=== PATIENT | male | born 1955 | race Caucasian/White ===

== ENCOUNTER → 2018-10-27 11:55 | Outpatient (CLI) | payer BC, SELFPAY ==
[2018-10-27 14:51] LABS: Blood Urea Nitrogen 21 mg/dL (7-18); Calcium 8.9 mg/dL (8.5-10.1); Carbon Dioxide 30 mmol/L (21.0-32.0); Chloride 100 mmol/L (98-107); Creatinine,Serum 1.05 mg/dL (0.70-1.30); Estimated Glomerular Filt Rate 72 ml/min (>60); GFR (African American) 87 ML/MIN (>60); Glucose 94 mg/dL (74-106); Sodium 139 mmol/L (136-145)
== END ==
PROVIDERS: Visit Provider Internal Medicine
DX: M19.90 Unspecified osteoarthritis, unspecified site (principal)
CPT/HCPCS: 80048

== ENCOUNTER → 2020-12-09 11:15 | Outpatient (CLI) | payer BC, SELFPAY | PROVIDERS: Visit Provider Urology | DX: Z01.812 Encounter for preprocedural laboratory examination (principal); Z11.52 Encounter for screening for COVID-19; N40.1 Benign prostatic hyperplasia with lower urinary tract symptoms | CPT/HCPCS: C9803; U0003; U0005 ==

== ENCOUNTER 2020-12-12 07:22 | Day surgery (SDC) | payer BC, SELFPAY ==
[2020-12-09 10:52] VITALS: BMI 30.3
[2020-12-12 07:38] VITALS: BP 122/77; PULSE 62; RESP 18; TEMP 36.2; O2SAT 97
--- NOTE | 2020-12-12 08:01 | HMH.ANESCL ---
[facility] Anesthesia Checklist - Patient Identification Patient Identification: Arm Band - Structural Data Admitted From: Home Planned Operative Procedure/s: Cystoscopy Consent for Planned Operative Procedure(s) Verified: Yes Verified Documents: Surgical Consent, History and Physical - NPO Status Verified Time NPO: 00:00 - Additional verifications Anesthesia Reactions: No Hx Blood Transfusions: No Blood Transfusion Reaction: No - Airway Assessment C-Spine Mobility Assessed: Yes (mp2) TMJ Mobility Assessed: Yes Dentition: Good Dentition - Neurological Assessment Level of Consciousness: Awake, Alert - Anesthesia Plan Anesthesia Risk discussed: Yes Anesthesia Plan: Verified ASA Class: II Anesthesia Type: MAC [facility] History I have reviewed the patient's past medical history: Yes Medical History: Reports:: Hyperlipidemia, Hypertension Denies:: Cancer, Diabetes Mellitus Type 1, Diabetes Mellitus Type 2, Internal Pacemaker, MRSA, Seizures *Have you ever received a pneumonia vaccine?: No *Have you received a flu vaccine this season?: Yes Other Medical History: Reports: Arthritis, Thyroid Disease. Denies: Blood Transfusion Reaction Anesthesia experience/problems:: nac Laterality Cases: Bilateral: Total Hip Replacement Other Surgeries: Yes: Colonoscopy. No: Pacemaker Amputation: No Fractures: No - *Social History Last grade of school completed: High school graduate Smoking Status: Never smoker Alcohol Intake: current Alcohol Intake Frequency:: a few times a month Substance Use Type: denies use *Occupational Status:: retired Housing: house Household Members: none *Travel in the last 8 weeks: None Family Hx:: Hyperlipidemia, Hypertension, Thyroid Disorder
[2020-12-12 09:47] VITALS: BP 107/64; PULSE 80; RESP 18; TEMP 35.8; O2SAT 93
[2020-12-12 09:55] VITALS: BP 110/61; PULSE 65; RESP 18; O2SAT 95
[2020-12-12 10:05] VITALS: BP 97/59; PULSE 65; RESP 18; O2SAT 95
[2020-12-12 10:15] VITALS: BP 107/69; PULSE 62; RESP 16; O2SAT 96
[2020-12-12 10:25] VITALS: BP 112/85; PULSE 62; RESP 18; O2SAT 98
--- NOTE | 2020-12-12 11:04 | HMH.OPNOTE ---
Date of procedure: 12/12/20 Pre-op Diagnosis:: Lower urinary tract symptoms Post-op Diagnosis:: BPH with lower urinary tract symptoms Procedure performed:: Cystoscopy Surgeon:: Randy Fournier MD [facility]BD SPECIAL EDUCATION TEACHER:: Maximiliano Elizondo Anesthesia: MAC, LMA Estimated blood loss (mL): 0 Clinical Note:: 65-year-old white male with lower urinary tract symptoms presents for urologic evaluation. Operative findings:: Patient with by lobar hyperplasia small median lobe. Prostate is not elongated. No evidence of chronic bladder outlet obstructive changes in the bladder Operative note:: Patient taken to the operating room after informed consent was obtained. Placed on the operating table in the supine position and general anesthesia administered. After adequate analgesia patient was placed into the dorsal lithotomy position and prepped and draped in the standard surgical fashion. The 22 Mo passed into the urethral meatus and to the prostatic urethra which showed evidence of trilobar hyperplasia. The bladder was entered and examined in a systematic fashion. There was no evidence of trabeculation, stones, diverticula or cellules. The ureteral orifices were in their normal anatomic position with clear efflux of urine. Small median lobe was present. Scope was retracted back to the prostatic urethra and there was evidence of by lobar hyperplasia. The prostatic urethra was about 2-1/2 cm in length. Bladder then emptied and the scope removed. Patient tolerated procedure well. Urojet placed into the urethra afterwards for comfort. Condition: stable Disposition: same day Specimens:: None Complications:: None
== END 2020-12-12 10:40 | disposition home or self-care (01) ==
LOC: OR 07:24
PROVIDERS: PCP Family Medicine; Visit Provider Urology
PROC: 0TJB8ZZ Inspection of Bladder, Via Natural or Artificial Opening Endoscopic (ICD-10-PCS; CPT 52000; principal; 2020-12-12 09:00)
DX: N40.1 Benign prostatic hyperplasia with lower urinary tract symptoms (principal); R35.1 Nocturia; R39.15 Urgency of urination; E78.5 Hyperlipidemia, unspecified; I10 Essential (primary) hypertension; Z83.438 Family history of other disorder of lipoprotein metabolism and other lipidemia; Z83.3 Family history of diabetes mellitus; Z83.49 Family history of other endocrine, nutritional and metabolic diseases; Z79.899 Other long term (current) drug therapy
CPT/HCPCS: 52000